=== PATIENT | male | born 1960 | race African-American/Black ===

== ENCOUNTER 2024-06-07 17:11 | Emergency (ER) | payer OTHER ==
[~2024-06-07] VITALS: Ht 172.7 cm; Wt 82.0 kg
[2024-06-07 18:21] VITALS: BP 126/80; PULSE 69; RESP 20; TEMP 98.7; O2SAT 99
[2024-06-07] MEDS: HYDROcodone-ACET 5/325MG TAB PO ONE (18:35)
[2024-06-07] MEDS: TETANUS-DIPTH-ACEL PERTUSSIS 0.5ML SYR Tdap IM ONE (18:56)
[2024-06-07] MEDS ORDERED: AUG875T PO (20:03)
== END 2024-06-07 20:45 | disposition home or self-care (01) ==
LOC: EDBD 17:11 → ER 17:11
DX: S00.212A Abrasion of left eyelid and periocular area, initial encounter (principal); S00.81XA Abrasion of other part of head, initial encounter; Y04.1XXA Assault by human bite, initial encounter; Y93.89 Activity, other specified; Y92.89 Other specified places as the place of occurrence of the external cause; Y99.8 Other external cause status
CPT/HCPCS: 70486; 90471; 90715

== ENCOUNTER 2024-10-01 22:32 | Emergency (ER) | payer OTHER ==
[~2024-10-01] VITALS: Ht 175.3 cm; Wt 68.0 kg
[2024-10-01 22:32] VITALS: BP 100/60; PULSE 94; RESP 20; TEMP 101.3; O2SAT 96
[~2024-10-01 22:32] MED LIST: AUG875T PO
--- NOTE | 2024-10-01 23:33 | DVH ---
XY L HIP COMPLETE XRAY, INDICATION: pain TECHNICAL DATA: Frontal and frog lateral views were obtained of the left hip.] COMPARISON: None FINDINGS: The left hip is normally located. The left hip joint is normally maintained with no marginal osteophy shira. No left hip fracture is identified. The left sacroiliac joint appears normal. IMPRESSION: Normal radiographs of the left hip.
[2024-10-01 23:38] LABS: COVID19 ANTIGEN SOFIA FIA NEGATIVE (NEGATIVE)
[2024-10-01 23:39] LABS: Rapid Influenza B Negative (Negative)
[2024-10-01 23:42] LABS: Rapid Influenza A Positive (Negative)
[2024-10-02] MEDS ORDERED: TAMIFLU PO (00:38)
[2024-10-02] MEDS ORDERED: IBUP-1455 PO (00:38)
[2024-10-02] MEDS ORDERED: PROM1SOL4 PO (00:38)
--- NOTE | 2024-10-02 00:38 | ED.PDOC ---
History of Present Illness HPI Comments 64-year-old male complaining of cough congestion headache and body aches x3 days. No nausea no vomiting no diarrhea. Nothing makes it better, nothing makes it worse. Patient states his was sick with similar symptoms. Patient states he was has been having mild sore throat. Chief Complaint: Flu like Time Seen by MD: 22:36 Primary Care Provider: NONE Reviewed Notes: Nurses Notes Allergies: Coded Allergies: NO KNOWN ALLERGIES (Unverified , 06/07/24) Home Meds Active Scripts Amoxicillin & Pot Clavulanate (AUGMENTIN TABLET) 875 Mg Tb, 875 MG PO BID for 7 Days, #14 TAB Prov:DONNA DENG 06/07/24 Information Source: Patient Mode of Arrival: Ambulatory Past Medical History PAST MEDICAL HISTORY: Denies Surgical History: Denies all surgeries Family History Family History: Reviewed,noncontributory to illness Social History Smoker: Non-Smoker Alcohol: Denies ETOH Use Drugs: Denies Drug Use Constitutional: reports: chills, fatigue, fever; denies: diaphoresis, malaise, sweats, weakness, others EENTM: denies: blurred vision, double vision, ear bleeding, ear discharge, ear drainage, ear pain, ear ringing, eye pain, eye redness, hearing loss, mouth pain, mouth swelling, nasal discharge, nose bleeding, nose congestion, nose pain, photophobia, tearing, throat pain, throat swelling, voice changes, others Respiratory: reports: cough; denies: hemoptysis, orthopnea, SOB at rest, shortness of breath, SOB with excertion, stridor, wheezing, others Cardiovascular: denies: chest pain, dizzy spells, diaphoresis, Dyspnea on exertion, edema, irregular heart beat, left arm pain, lightheadedness, palpitations, PND, syncope, others Gastrointestinal: denies: abdomen distended, abdominal pain, blood streaked bowels, constipated, diarrhea, dysphagia, difficulty swallowing, hematemesis, melena, nausea, poor appetite, poor fluid intake, rectal bleeding, rectal pain, vomiting, others Genitourinary: denies: burning, dysuria, flank pain, frequency, hematuria, incontinence, penile discharge, penile sore, pain, testicle pain, testicle swelling, urgency, others Neurological: denies: dizziness, fainting, headache, left sided numbness, left sided weakness, numbness, paresthesia, pre-existing deficit, right sided numbness, right sided weakness, seizure, speech problems, tingling, tremors, weakness, others Musculoskeletal: denies: back pain, gout, joint pain, joint swelling, muscle pain, muscle stiffness, neck pain, others Integumetry: denies: bruises, change in color, change in hair/nails, dryness, laceration, lesions, lumps, rash, wounds, others Physical Exam General Appearance: No Apparent Distress, Normal HEENT: Normal ENT Inspection, Pharynx Normal, TMs Normal Neck: Full Range of Motion, Non-Tender, Normal, Normal Inspection Respiratory: Chest Non-Tender, Lungs Clear, No Accessory Muscle Use, No Respiratory Distress, Normal Breath Sounds Cardiovascular: No Edema, No JVD, No Murmur, No Gallop, Normal Peripheral Pulses, Regular Rate/Rhythm Breast Exam: Deferred Gastrointestinal: No Organomegaly, Non Tender, No Pulsatile Mass, Normal Bowel Sounds, Soft Genitalia: Deferred Pelvic: Deferred Rectal: Deferred Extremities: No calf tenderness, Normal capillary refill, Normal inspection, Normal range of motion, Non-tender, No pedal edema Musculoskeletal : Apperance: Normal Neurologic: Alert, 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 Was a procedure done?: No Differential Dx Considerations may include: URI, influenza, COVID, strep throat, pharyngitis, pneumonia X-Ray, Labs, Meds, VS Vital Signs Date Time Temp Pulse Resp B/P (MAP) Pulse Ox O2 Delivery O2 Flow Rate FiO2 10/01/24 22:32 101.3 94 20 100/60 (73) 96 Lab Test 10/01/24 22:56 Range/Units Influenza Type A Antigen Positive Negative Influenza Type B Antigen Negative Negative SARS-CoV-2 Antigen (Rapid) Negative NEGATIVE X-Ray, Labs, Meds, VS Comment Imaging: X-rays and CT scans were reviewed and interpreted by this provider, imaging shows no fractures and no pathological disease. Pending radiology review. Laboratory: Labs reviewed and interpreted by this provider. Positive influenza Patient has prior medical visits reviewed. Med reconciliation performed Vital signs reviewed Time of 1ST Reevaluation: 00:38 Reevaluation 1ST: Improved Patient Education/Counseling: Diagnosis, Treatment, Need For Follow Up (Patient advised to follow-up in the emergency room in the next 24 to 48 hours if symptoms do not improve. Advised follow-up with PCP in the next 3 to 5 days. Patient verbalized understanding. ) Family Education/Counseling: Diagnosis, Treatment Departure 1 Departure Time of Disposition: 00:36 Impression: Primary Impression: Influenza A Disposition: HOME / SELF CARE / HOMELESS Condition: Fair e-Prescriptions Promethazine-Dm (Promethazine Dm 6.25-15 mg/5Ml) 1 Yesika Yesika 5 ML PO TID PRN, #240 ML Prov: BRIANNA SWAIN 10/02/24 Ibuprofen Micronized (Ibuprofen) 800 Mg Tab 800 MG PO TID PRN, #40 TAB Prov: BRIANNA SWAIN 10/02/24 Oseltamivir Phosphate (Tamiflu) 75 Mg Cap 75 MG PO BID for 5 Days, #10 CAP Prov: BRIANNA SWAIN 10/02/24 Discharged With: Self Critical Care Note Critical Care Time?: No Stability Stability form required: No Heart Score Heart Score: Heart Score Response (Comments) Value History N/A 0 EKG N/A 0 Age N/A 0 Risk Factors N/A 0 Troponin N/A 0 Total 0 BRIANNA SWAIN Oct 02, 2024 00:38
[2024-10-02] MEDS: DexAMETHasone SOD PHOS 10MG/1ML VIAL INJ IM ONE (01:04)
== END 2024-10-02 02:11 | disposition home or self-care (01) ==
LOC: ER 22:32
DX: J10.1 Influenza due to other identified influenza virus with other respiratory manifestations (principal); Z20.822 Contact with and (suspected) exposure to COVID-19; Z79.899 Other long term (current) drug therapy
CPT/HCPCS: 36415; 73502; 87426; 87804; 99284; J1100